=== PATIENT | female | born 1985 | race American Indian/Alaskan Native ===

== ENCOUNTER 2016-10-09 17:20 | Emergency (ER) | payer OTHER ==
[2016-10-09 18:15] VITALS: BP 139/96
--- NOTE | 2016-10-09 18:20 | Emergency Department Report ---
ED ENT HPI - General Chief complaint: Upper Respiratory Infection Stated complaint: POSS LARYNGITIS Time Seen by Provider: 10/09/16 18:13 Source: patient Mode of arrival: Ambulatory Limitations: No Limitations - History of Present Illness Initial comments: PT c/o hoarse voice x 3 days, + ear pain, + dry cough, PT also c/o sinus congestion x 1 month. complaint: other (sinus congestion ) Onset/Timin -: Gradual Location: throat, other (sinus ) Severity scale (0 -10): 7 Quality: constant, other (pressure ) Improves with: none Worsens with: swallowing Associated Symptoms: cough, pain with swallowing. denies: fever - Related Data Previous Rx's Medication Instructions Recorded Last Taken Type Amoxicillin 500 mg PO BID #20 capsule 10/09/16 Unknown Rx methylPREDNISolone [Medrol] 4 mg PO DAILY #1 tab.ds.pk 10/09/16 Unknown Rx Allergies Allergy/AdvReac Type Severity Reaction Status Date / Time No Known Allergies Allergy Verified 10/09/16 18:16 ED Dental HPI - General Chief complaint: Upper Respiratory Infection Stated complaint: POSS LARYNGITIS Time Seen by Provider: 10/09/16 18:13 Source: patient Mode of arrival: Ambulatory Limitations: No Limitations - Related Data Previous Rx's Medication Instructions Recorded Last Taken Type Amoxicillin 500 mg PO BID #20 capsule 10/09/16 Unknown Rx methylPREDNISolone [Medrol] 4 mg PO DAILY #1 tab.ds.pk 10/09/16 Unknown Rx Allergies Allergy/AdvReac Type Severity Reaction Status Date / Time No Known Allergies Allergy Verified 10/09/16 18:16 ED Review of Systems ROS: Stated complaint: POSS LARYNGITIS Other details as noted in HPI Comment: All other systems reviewed and negative Constitutional: malaise. denies: fever ENT: ear pain, congestion Respiratory: cough Gastrointestinal: denies: abdominal pain, nausea, vomiting Genitourinary: denies: abnormal menses ED Past Medical Hx - Past Medical History Previous Medical History?: No - Surgical History Past Surgical History?: No - Medications Home Medications: Home Medications Medication Instructions Recorded Confirmed Last Taken Type Amoxicillin 500 mg PO BID #20 capsule 10/09/16 Unknown Rx methylPREDNISolone [Medrol] 4 mg PO DAILY #1 tab.ds.pk 10/09/16 Unknown Rx ED Physical Exam - General Limitations: No Limitations General appearance: alert, in no apparent distress - Head Head exam: Present: atraumatic, normocephalic, other (fronal sinus tenderness krystle ) - Eye Eye exam: Present: normal appearance, PERRL, EOMI. Absent: conjunctival injection - ENT ENT exam: Present: normal orophraynx, mucous membranes moist, normal external ear exam - Expanded ENT Exam Expanded TM/Canal exam: Cerumen Impaction: Right TM, Left TM Mouth exam: Present: normal external inspection, other (hoarse voice noted ). Absent: drooling, trismus, muffled voice Throat exam: Positive: normal inspection. Negative: tonsillar erythema, tonsillomegaly, tonsillar exudate - Neck Neck exam: Present: normal inspection, full ROM. Absent: tenderness - Respiratory Respiratory exam: Present: normal lung sounds bilaterally. Absent: respiratory distress - Cardiovascular Cardiovascular Exam: Present: regular rate, normal rhythm, normal heart sounds - Extremities Exam Extremities exam: Present: normal inspection, full ROM - Back Exam Back exam: Present: normal inspection, full ROM. Absent: tenderness - Neurological Exam Neurological exam: Present: alert, oriented X3, CN II-XII intact, normal gait - Psychiatric Psychiatric exam: Present: normal affect, normal mood - Skin Skin exam: Present: warm, dry, intact ED Course Vital Signs 10/09/16 18:13 Temperature 99.2 F Pulse Rate 86 Respiratory 16 Rate Blood Pressure 139/96 O2 Sat by Pulse 100 Oximetry - Reevaluation(s) Reevaluation #1: 10/09/16 18:20 PT aware of dx and plan of care. Pt has no questions at this time. - Pulse Oximetry Interpretation Digit-Finger Initial Pulse Oximetry Readin Actions Taken: none ED Medical Decision Making - Differential Diagnosis om, oe, strep pharyngitis, sinusitis Critical care attestation.: If time is entered above; I have spent that time in minutes in the direct care of this critically ill patient, excluding procedure time. ED Disposition Clinical Impression: Laryngitis, Impacted cerumen of both ears Acute sinusitis Qualifiers: Sinusitis location: frontal Recurrence: not specified as recurrent Qualified Code(s): J01.10 - Acute frontal sinusitis, unspecified Disposition: - TO HOME OR SELFCARE Is pt being admited?: No Does the pt Need Aspirin: No Condition: Stable Instructions: Sinusitis (ED), Laryngitis (ED), Cerumen Impaction (ED) Additional Instructions: Recheck bp at follow up Prescriptions: Amoxicillin 500 mg PO BID #20 capsule methylPREDNISolone [Medrol] 4 mg PO DAILY #1 tab.ds.pk Referrals: ELVIS NGUYEN MD [Staff Physician] - 3-5 Days Forms: Work/School Release Form(ED) Time of Disposition: 18:33
== END 2016-10-09 18:46 | disposition home or self-care (01) ==
LOC: ED 17:20
DX: J04.0 Acute laryngitis (principal); H61.23 Impacted cerumen, bilateral; J01.10 Acute frontal sinusitis, unspecified
CPT/HCPCS: 99282

== ENCOUNTER 2017-02-12 05:04 | Emergency (ER) | payer OTHER ==
[2017-02-12 05:08] VITALS: BP 137/68
== END 2017-02-12 05:21 | disposition left against medical advice (07) ==
LOC: ED 05:04
DX: R09.89 Other specified symptoms and signs involving the circulatory and respiratory systems (principal); Z53.21 Procedure and treatment not carried out due to patient leaving prior to being seen by health care provider

== ENCOUNTER 2019-07-23 10:03 | Day surgery (SDC) | payer BC, OTHER ==
--- NOTE | 2019-07-23 07:45 | Short Stay Summary ---
Short Stay Documentation Date of service: 07/23/19 Narrative H&P: 34-year-old -0-2-2 at approximately 7 weeks estimated gestational age presents with new onset pelvic pain. A pelvic ultrasound was performed that demonstrated evidence of a left ectopic with cardiac activity. The patient has remained clinically stable with no findings of significant pelvic fluid on the ultrasound. Patient has been reassessed/reevaluated/re-examined. H&P has been reviewed. No interval changes. - History Principal diagnosis: Ectopic Past Medical History: No medical history Past Surgical History: No surgical history Social history: - Allergies and Medications Current Medications: Allergies No Known Allergies Allergy (Verified 10/09/16 18:16) Home Medications Medication Instructions Recorded Confirmed Last Taken Type Amoxicillin 500 mg PO BID #20 capsule 10/09/16 Unknown Rx methylPREDNISolone [Medrol] 4 mg PO DAILY #1 tab.ds.pk 10/09/16 Unknown Rx - Physical exam General appearance: no acute distress Integumentary: no rash HEENT: Atraumatic Lungs: Clear to auscultation Breasts: deferred Heart: Regular rate Gastrointestinal: normal Female Genitourinary: deferred Extremities: no ischemia - Brief post op/procedure progress note Date of procedure: 07/23/19 Pre-op diagnosis: Left ectopic Post-op diagnosis: same Procedure: Laparoscopy Left salpingectomy Anesthesia: DIAZ Surgeon: EUGENIA PADILLA Estimated blood loss: minimal Pathology: list (Left ectopic ) Specimen disposition: to lab Condition: stable - Hospital course Hospital course: The patient was admitted the day of surgery and underwent a laparoscopy and partial left salpingectomy. Please see operative note for details of surgery. Postoperative course was uneventful. - Disposition Condition at discharge: Good Disposition: DC-01 TO HOME OR SELFCARE Short Stay Discharge Plan Activity: other (Pelvic rest for 1 week) Diet: regular Additional Instructions: Patient may schedule follow-up in 2 weeks Prescriptions: Ibuprofen [Motrin] 800 mg PO Q8HR PRN #60 tablet PRN Reason: Pain, Mild (1-3) HYDROcodone/APAP 5-325 [[place] 5/325] 1 each PO Q6HR PRN #20 tablet PRN Reason: Pain
[2019-07-23] MEDS ORDERED: ONDANSETRON 4 MG/2 ML INJ IV PRN (10:26)
[2019-07-23] MEDS ORDERED: MAGNESIUM OXIDE 400 MG TAB PO NR (10:27)
[2019-07-23] MEDS ORDERED: ACETAMINOPHEN 500 MG TAB PO NR (10:27)
--- NOTE | 2019-07-23 10:27 | Anesthesia Day of Surgery ---
Anesthesia Day of Surgery - Day of Surgery Patient Examined: Yes Patient H&P Reviewed: Yes Patient is NPO: Yes
--- NOTE | 2019-07-23 10:28 | Anesthesia Consultation ---
Anesthesia Consult and Med Hx Date of service: 07/23/19 - Airway Anesthetic Teeth Evaluation: Good ROM Head & Neck: Adequate Mental/Hyoid Distance: Adequate Mallampati Class: Class II Intubation Access Assessment: Good - Pre-Operative Health Status ASA Pre-Surgery Classification: ASA1, Emergency Proposed Anesthetic Plan: General - Pulmonary Hx Respiratory Symptoms: No (States she can climb two flights of stairs) - Hematic Hx Sickle Cell Disease: No
[2019-07-23] MEDS ORDERED: BACTERIOSTATIC SODIUM CHLORIDE 0.9% 30 ML VIAL INFILTRATI ONE (10:51)
[2019-07-23] MEDS ORDERED: LACTATED RINGERS 1,000 ML IV SCH (11:00)
[2019-07-23] MEDS ORDERED: CELECOXIB 200 MG CAP PO NR (11:00)
[2019-07-23] MEDS ORDERED: MIDAZOLAM 2 MG/2 ML INJ IV NR (11:00)
[2019-07-23 11:55] LABS: Eosinophils # (Auto) 0.1 K/mm3 (0.0-0.4); Eosinophils % (Auto) 2.8 % (0.0-4.3); Hematocrit 35.9 % (30.3-42.9); Hemoglobin 11.7 gm/dl (10.1-14.3); Lymphocytes # (Auto) 0.9 K/mm3 (1.2-5.4); Lymphocytes % (Auto) 21.3 % (13.4-35.0); Mean Corpuscular HGB Conc 33 % (30-34); Mean Corpuscular Volume 85 fl (79-97); Monocytes # (Auto) 0.4 K/mm3 (0.0-0.8); Monocytes % (Auto) 9.7 % (0.0-7.3); Platelet Count 216 K/mm3 (140-440); Red Cell Distribution Width 13.1 % (13.2-15.2)
[2019-07-23] MEDS ORDERED: ROCURONIUM 50 MG/5 ML INJ IV ONE (13:18)
[2019-07-23] MEDS ORDERED: dexAMETHasone 20 MG/5 ML VIAL ONE (13:18)
[2019-07-23] MEDS ORDERED: ONDANSETRON 4 MG/2 ML INJ ONE (13:18)
[2019-07-23] MEDS ORDERED: HYDROmorphone 1 MG/1 ML INJ ONE (13:19)
[2019-07-23] MEDS ORDERED: propofoL 200 MG/20 ML VIAL IV ONE (13:19)
[2019-07-23] MEDS ORDERED: BUPIVACAINE/PF (0.5%) 5 MG/1 ML 30 ML VIAL INFILTRATI ONE ×2 (13:20→14:29)
[2019-07-23] MEDS ORDERED: LIDOCAINE MPF (2%) 20 MG/1 ML VIAL 5 ML ONE (14:12)
[2019-07-23] MEDS ORDERED: GLYCOPYRROLATE 0.4 MG/2 ML INJ ONE (14:25)
[2019-07-23] MEDS ORDERED: NEOSTIGMINE 10MG/10 ML INJ MDV ONE (14:25)
[2019-07-23] MEDS ORDERED: SODIUM CHLORIDE 0.9% IRRIG SOLN 2000 ML IR ONE (14:29)
--- NOTE | 2019-07-23 14:44 | Operative Report ---
Operative Report Operative Report: Date of surgery: July 23, 2019 Preoperative diagnosis: Ectopic (left) Postoperative diagnosis: Same as above Procedure: Laparoscopy; left salpingectomy Surgeon: Ashley Wang M.D. Anesthesia: General endotracheal anesthesia Estimated blood loss: Minimal Findings: Intact left ectopic ; hemoperitoneum Pathology: Left ectopic and partial left fallopian tube Indication: 34-year-old at 7 weeks estimated gestational age who presents with pelvic pain. The patient was unaware that she was . Pelvic ultrasound demonstrated findings of a left ectopic with evidence of cardiac activity. Procedure: The patient was taken to the operating room and given general endotracheal anesthesia without complication. The patient is prepped and draped in a normal sterile fashion. A bivalve speculum was placed in the patient's vagina and a single-tooth tenaculum was placed on the anterior lip of the cervix .A uterine acorn manipulator was placed, and the bivalve speculum was then removed. Attention was then turned to the patient's abdomen where a 5 mm infraumbilical skin incision was then made. A Veress needle was placed and peritoneal entry was verified water-filled syringe. Insufflation of the peritoneal cavity was performed with CO2 gas. A 5 mm trocar was placed and the laparoscope was then inserted. The patient was then placed in Trendelenburg. A 10 mm suprapubic skin incision was then made. Under direct visualization a 10 mm trocar was then placed. General survey of the patient's abdomen revealed a contains left ectopic . There was evidence of hemoperitoneum in the posterior cul-de-sac. The right tube and ovary were normal in appearance. An additional 5 mm left lateral trocar was placed under direct visualization. The fallopian tube was then followed out to the fimbriated end. The left tube was grasped and the LigaSure device was used to coagulate and transect the mesosalpinx. The distal portion of the fallopian tube was excised which contained the ectopic . An Endo Catch bag was placed through the 10 mm trocar and the ectopic was then removed. Copious irrigation of the pelvis was performed. No evidence of active bleeding was noted from the surgical site. The 10 mm fascial defect was closed with 0 Vicryl involving the Kota Bello device. Pneumoperitoneum was then released. The 5 mm trocars along with the laparoscope were then removed. The skin incisions were then closed with 4-0 Monocryl. The incisions were injected with quarter percent Marcaine. Dressings were applied to the incision. The vaginal instruments were then removed atraumatically. Then successfully extubated and taken to the recovery room. All sponge laps and needle counts were correct x2.
[2019-07-23] MEDS: HYDROmorphone 1 MG/1 ML INJ IV PRN ×2 (14:50→15:05)
[2019-07-23 15:47] VITALS: BP 109/65
--- NOTE | 2019-07-24 08:13 | Post Anesthesia Evaluation ---
- Post Anesthesia Evaluation Patient Participated: Yes Airway Patent: Yes Stable Respiratory Function: Yes Nausea/Vomiting: No Temp > 96.8F: Yes Pain Manageable: Yes Adequeate Hydration: Yes Anesthesia Complications: No Block Receding Appropriately: Not Applicable Patient on Ventilator: No
== END 2019-07-23 16:20 | disposition home or self-care (01) ==
LOC: OR 10:03
PROVIDERS: ATTEND Obstetrics & Gynecology
DX: O00.102 Left tubal pregnancy without intrauterine pregnancy (principal); Z79.899 Other long term (current) drug therapy
CPT/HCPCS: 36415; 59151; 85025; 86900; 86901; 88305; A4217; J1100; J1170; J2250; J2405; J2704; J2710; J7120